=== PATIENT | female | born 1940 | race Caucasian/White ===

== ENCOUNTER 2021-04-30 11:35 | Inpatient (IN) | payer MEDICARE ==
[~2021-04-30] VITALS: Ht 149.9 cm; Wt 92.7 kg
[~2021-04-30 11:35] MED LIST: ESTRADIOL0.5 MG PO; METFORMIN HCL500 MG PO; MICRONASE5 MG PO; PRINIVIL20 MG PO; PROVERA2.5 MG PO
[2021-04-30 12:20] LABS: BASOPHIL 0.6 % (0-2); EOSINOPHIL 1.3 % (0-7); HCT 38.3 % (37.0-47.0); HGB 12.6 g/dl (12.5-16.0); LYMPHOCYTE 7.8 % (15-48); MCH 27.9 pg (25.0-31.0); MCHC 32.9 g/dL (32.0-36.0); MCV 84.7 fL (78.0-100.0); MONOCYTE 6.4 % (0-12); MPV 8.8 fL (6.0-9.5); NEUTROPHIL 83.3 % (41-80); NRBC 0; PLT 301 K/uL (150-400); RBC 4.52 M/uL (4.20-5.40); RDW 14.6 % (11.5-14.0); WBC 12.7 K/uL (4.0-10.5)
[2021-04-30 13:15] LABS: ALBUMIN 3.5 g/dL (3.4-5.0); BILIRUBIN - TOTAL 0.6 mg/dL (0.2-1.0); BUN/CREAT RATIO (CALC) 19.8 RATIO; CREATININE 1.97 mg/dL (0.51-0.95); GLOBULIN (CALCULATION) 3.9 g/dL; POTASSIUM 5.5 mmol/L (3.5-5.1); TOTAL PROTEIN 7.4 g/dL (6.4-8.2)
[2021-04-30] MEDS ORDERED: LASIX20 MG PO (18:52)
[2021-04-30] MEDS ORDERED: NORVASC5 MG PO (18:53)
[2021-04-30] MEDS ORDERED: LIPITOR 10MG TA10 MG PO (18:53)
[2021-04-30] MEDS ORDERED: LOPRESSOR25 MG PO (18:54)
[2021-04-30] MEDS ORDERED: K-TAB ER10 MEQ PO (18:55)
[2021-04-30] MEDS ORDERED: NOVOLOG VI100 UNIT/1 SC (18:56)
[2021-04-30] MEDS ORDERED: LEVEMIR VI100 UNITS/ SC (18:57)
[2021-05-01 03:50] LABS: BASOPHIL 0.4 % (0-2); HCT 35.4 % (37.0-47.0); HGB 11.4 g/dl (12.5-16.0); LYMPHOCYTE 6.9 % (15-48); MCH 27.9 pg (25.0-31.0); MCHC 32.2 g/dL (32.0-36.0); MCV 86.8 fL (78.0-100.0); MONOCYTE 8.3 % (0-12); MPV 8.7 fL (6.0-9.5); NEUTROPHIL 81.9 % (41-80); NRBC 0; PLT 266 K/uL (150-400); RBC 4.08 M/uL (4.20-5.40); RDW 14.6 % (11.5-14.0); WBC 10.4 K/uL (4.0-10.5)
[2021-05-01 04:11] LABS: BUN/CREAT RATIO (CALC) 18.7 RATIO; CREATININE 2.09 mg/dL (0.51-0.95); POTASSIUM 5.4 mmol/L (3.5-5.1)
--- NOTE | 2021-05-01 12:11 | NUR ---
05/01/21 Ms. Reid lives at home with her spouse. She does not use any DME. A referral was made to [facility] 02 at 4L.
[2021-05-01] MEDS ORDERED: LASIX20 MG PO (12:31)
[2021-05-01] MEDS ORDERED: CEFDINIR300 MG PO (12:31)
[2021-05-01] MEDS ORDERED: AZITHROMYCIN250 MG PO (12:31)
[2021-05-01] MEDS ORDERED: LOPRESSOR50 MG PO (12:31)
--- NOTE | 2021-05-01 14:22 | NUR ---
05/01/21 A referral was made to [facility] per patient choice.
--- NOTE | 2021-05-01 15:12 | NUR ---
PT DISCHARGED TO HOME WITH HOME HEALTH, BUT BEFORE LEAVING PT HAD AN ECHO, RESULTS WILL BE SENT TO HER PCP TO FOLLOW UP WITH CARDIOLOGY MCKAY HAD BROUGHT HER HOME OXYGEN TANK AND SHE WILL HAVE A CONCENTRATOR AT HOME. PT WA ALSO SENT HOME WITH AN O2 MONITOR TO CHECK OXYGEN AT HOME. WAS INSTRUCTED TO WEAR OXYGEN 4LNC AT ALL TIMES IV AND MONITOR REMOVED PRIOR TO GOING HOME
== END 2021-05-01 14:25 | disposition home health service (06) | DRG 193 ==
LOC: FER 11:35 → FTCU 17:31
PROVIDERS: Emergency Medicine; ADMIT Family Medicine
DX: J18.9 Pneumonia, unspecified organism (principal); J96.01 Acute respiratory failure with hypoxia; R65.11 Systemic inflammatory response syndrome (SIRS) of non-infectious origin with acute organ dysfunction; N18.4 Chronic kidney disease, stage 4 (severe); J44.0 Chronic obstructive pulmonary disease with (acute) lower respiratory infection; I13.0 Hypertensive heart and chronic kidney disease with heart failure and stage 1 through stage 4 chronic kidney disease, or unspecified chronic kidney disease; I50.32 Chronic diastolic (congestive) heart failure; Z20.822 Contact with and (suspected) exposure to COVID-19; E11.22 Type 2 diabetes mellitus with diabetic chronic kidney disease; E87.5 Hyperkalemia; Z88.0 Allergy status to penicillin; Z79.899 Other long term (current) drug therapy
CPT/HCPCS: 36415; 36600; 71045; 78582; 80048; 80053; 82803; 82962; 83605; 83880; 84145; 84484; 85025; 85379; 87040; 93005; 94010; 94640; 94760; 94762; 96372; A9540; J0456; J0692; J0696; J1650; J1815; J3370; J7050; U0002